=== PATIENT | female | born 1990 | race Hispanic/Latino ===

== ENCOUNTER → 2017-07-21 | Outpatient (CLI) | payer OTHER ==
[~2017-07-21] MED LIST: IOPAMIDOL 370 MG/ML 200 ML INFUS..BTL INJ ONE; PHENTERMINE H37.5 MG PO; SODIUM CHLORIDE 0.9% 50ML 50 ML ONE
--- NOTE | 2017-07-21 13:57 | Diagnostic Imaging Report ---
PROCEDURE:CT ABDOMEN W COMPARISON:[facility], CT, CT ABDOMEN/PELVIS W CONTRAST, 01/21/2011, 12:16. [facility], MRI, MRI ABDOMEN WOW, 03/31/2014, 13:34. INDICATIONS:External compression findings. TECHNIQUE: Routine protocol Volumetric CT abdomen after ministration of 100 mL Isovue-370 intravenous contrast and 100 mL enteric water. Multiplanar reformatted images. DLP: 543.62 FINDINGS: Clear lung bases. No pleural effusions. Normal heart size. Liver: Normal. The 1 cm lesion in segment 4A seen on the comparison MRI is not conspicuous. Gallbladder: Normal Pancreas: Normal Spleen: Normal Adrenal glands: Normal Kidneys: Normal Ureters: Imaged segments are normal Bowel: Normal Peritoneum: Normal Vasculature: Normal Lymph nodes: Normal Skeleton: Normal Soft tissues: Normal CONCLUSION: 1. Normal study. 2. A 1 cm benign lesion in segment 4A of the liver seen on MRI is not conspicuous. Dictated by: Sandeep Tinoco M.D. on 07/21/2017 at 13:58 Electronically approved by: Sandeep Tinoco M.D. on 07/21/2017 at 13:58
== END ==
LOC: CT 11:48
PROVIDERS: ATTEND Internal Medicine Gastroenterology
DX: K76.9 Liver disease, unspecified (principal)
CPT/HCPCS: 74160; 81025; Q9967

== ENCOUNTER 2019-03-22 01:58 | Emergency (ER) | payer OTHER ==
[~2019-03-22] VITALS: Ht 162.6 cm; Wt 72.6 kg
[~2019-03-22 01:58] MED LIST changes: -ACETAMINOPHEN 1000 MG/100 ML IV ONE; -ACETAMINOPHEN/CODEINE 300MG - 30MG TAB ONE; -BUPIVACAINE 0.25%/EPI 30ML SDV INJ ONE; -CEFAZOLIN SOD 1 GM VIAL ONE; -DESFLURANE 240 ML BTL INH ONE; -DEXAMETHASONE SOD PHOS INJ 4 MG/ML VIAL ONE; -FENTANYL CITRATE/PF 100MCG/2 ML INJ ONE; -GLYCOPYRROLATE INJ 1MG/ 5 ML SYR ONE; -KETOROLAC TROMETHAMINE 30 MG/ML VIAL ONE; -LIDOCAINE HCL 2% JELLY 5 ML TUBE ONE; -LIDOCAINE HCL 2% LOCAL INJ 5 ML SDV VIAL INJ ONE; -METOCLOPRAMIDE HCL 10 MG/2ML VIAL ONE; -MIDAZOLAM HCL 2 MG/2 ML VIAL ONE; -NEOSTIGMINE 5 MG/5ML SYR ONE; -ONDANSETRON HCL INJ 2MG/ML 2ML 2 MG/ML VIAL ONE; -PRENATAL VITAM1 EACH; -PROMETHAZINE HCL (IM) 25 MG/ML VIAL ONE; -PROPOFOL IV EMULSION 10 MG/ML 20 ML VIAL ONE; -ROCURONIUM BROMIDE 10 MG/ML 5ML VIAL ONE
--- OUTSIDE RECORDS SUMMARY | 2019-03-22 02:00 | XMS REPORT ---
Author [facility] Address Unknown Phone Unavailable Care Team Providers Care Powerhouse Tender Name Role Phone AVI LANDIN Unavailable Unavailable Payers Payer Name Policy Type Policy Number Effective Date Expiration Date Problems This patient has no known problems. Allergies, Adverse Reactions, Alerts Allergy Name Allergy Type Status Severity Reaction(s) Onset Date Inactive Date Treating Clinician Comments pseudoephedrine DA Active U 2019-01-22 00:00:00 carbinoxamine DA Active U 2019-01-22 00:00:00 pseudoephedrine DA Active U 2018-02-09 00:00:00 carbinoxamine DA Active U 2018-02-09 00:00:00 pseudoephedrine DA Active U 2014-01-10 00:00:00 carbinoxamine DA Active U 2014-01-10 00:00:00 .RONDEC DA Active U 2013-06-08 00:00:00 Medications This patient has no known medications. Results Test Description Test Time Test Comments Text Results Atomic Results Result Comments PLACENTA THIRD TRIMESTER 2019-01-24 15:46:00 RUN DATE: 01/25/19 [facility] PAGE 1 RUN TIME: 0850 Specimen Inquiry RUN USER: INTERFACE PATIENT: MAICO SHER LOC: RUFINO U #: [id number] AGE/SX: ROOM: [age] RE01/22/19REG DR: Joanne Mortensen MD : 89 BED: A DIS: 01/24/19 STATUS: DIS IN TLOC: SPEC #: [id number] RECD: 01/22/19 STATUS: JESI AWILDABeverly #: [id number] JORGE: 01/22/19- SUBM DR: Joanne Mortensen MD ENTERED: 01/23/19 SP TYPE: PLACIII OT DR: ORDERED: LEVEL V SURGICA CODES: [id number] - PLACENTA, NOS PROCEDURES: LEVEL V SURGICA (Incomplete) TISSUES: PLACENTA, NOS - PLACENTA CLINICAL HISTORY 28 year old, 38.4 weeks, [id number], section, gestational hypertension (kr) FINAL DIAGNOSIS Placenta, 38.4 weeks gestational age, section: - third trimester placenta, 559 gm (75th percentile) - low grade chronic basal villitis, focal - meconium macrophages within membranes - trivascular umbilical cord free of inflammation CPT code(s): 65337 [facility]/dennis dt: 01/24/19 GROSS DESCRIPTION The specimen was received in a container, labeled with the patient's name, unit number and designated "placenta". The following attributes are observed: Cord insertion: 7 cm from margin Cord length: 72 cm Number of vessels: 3 Cord color: Blue-bell Other cord findings: None surface findings: Steel blue, wrinkled, glistening Vasculature: Displays unremarkable blood vasculature Membranes rupture site: Marginal Membrane color: Bell Other membrane findings: Semi- translucent The trimmed placental weight: 559 gm Disk measurement: 21 x 17 x 4 cm in greatest dimension Accessory lobes: None Maternal surface: Lobulated and intact and contains a peripheral bell, firm lesion measuring 0.5 cm and involving CONTINUED ON NEXT PAGE RUN DATE: 01/25/19 [facility] PAGE 2 RUN TIME: 0850 Specimen Inquiry RUN USER: INTERFACE SPEC #: [id number] PATIENT: MAICO SHER #[id number] (Continued)---- GROSS DESCRIPTION (Continued) less than 5% of the total placental tissue (A4) Parenchyma: Red, beefy, and spongy Parenchyma lesions: None Cassettes: A1 through A4 hz/kr 01/22/19 @ 0944-------- Signed Shannon Abreu MD 01/24/19 1546 END OF REPORT HGB HCT 2019-01-23 05:54:00 HEMOGLOBIN (test code=HGB) 10.0 g/dL 10.7-13.9 HEMATOCRIT (test code=HCT) 31.7 % 32.1-42.1 CBC W/AUTO [id number] 11:57:00* Test Item Value Reference Range Comments WHITE BLOOD CELL (test code=WBC) 10.1 K/mm3 6.6-12.1 RED BLOOD CELL (test code=RBC) 4.45 M/mm3 3.45-5.01 HEMOGLOBIN (test code=HGB) 11.6 g/dL 10.7-13.9 HEMATOCRIT (test code=HCT) 35.9 % 32.1-42.1 MEAN CELL VOLUME (test code=MCV) 81 fL 84.1-94.8 MEAN CELL HGB (test code=MCH) 26.1 pg 27-35 MEAN CELL HGB CONCETRATION (test code=MCHC) 32.3 gm/dL 32.2-34.1 RED CELL DISTRIBUTION WIDTH (test code=RDW) 14.3 % 12.4-16.5 PLATELET COUNT (test code=PLT) 226 K/mm3 133-385 IMMATURE PLATELET FRACTION (test code=IPF) 0.0 % 0.0-10.8 MEAN PLATELET VOLUME (test code=MPV) 10.9 fl 9.1-12.7 NEUTROPHIL % (test code=NT%) 72.2 % 56.5-79.4 LYMPHOCYTE % (test code=LY%) 18.2 % 14.3-34.3 MONOCYTE % (test code=MO%) 6.2 % 5.1-10.4 EOSINOPHIL % (test code=EO%) 2.6 % 0.1-3.0 BASOPHIL % (test code=BA%) 0.3 % 0.1-1.0 NEUTROPHIL # (test code=NT#) 7.3 K/mm3 LYMPHOCYTE # (test code=LY#) 1.8 K/mm3 MONOCYTE # (test code=MO#) 0.6 K/mm3 EOSINOPHIL # (test code=EO#) 0.26 K/mm3 BASOPHIL # (test code=BA#) 0.0 K/mm3 RBC MORPHOLOGY REQUIRED (test code=RBCM) NORMAL NORMAL PLATELET MORPHOLOGY REQUIRED (test code=PLTMR) NORMAL NORMAL AG HEPATITIS B [id number] 14:12:00* Test Item Value Reference Range Comments AG HEPATITIS B SURFACE (test code=HBSAG) NONREACTIVE NONREACTIVE IS CONSENT FORM SIGNED FOR HIV TESTING? YAB HEPATITIS C [id number] 14:12:00* Test Item Value Reference Range Comments AB HEPATITIS C (test code=HCVAB) NONREACTIVE NONREACTIVE SIGNAL TO CUTOFF (test code=CUTOFF) 0.17 <0.80 IS CONSENT FORM SIGNED FOR HIV TESTING? YAB [id number] 14:12:00* Test Item Value Reference Range Comments AB TREPONEMA (test code=TREPAB) NONREACTIVE NONREACTIVE IS CONSENT FORM SIGNED FOR HIV TESTING? YAB HIV 1 14:12:00* Test Item Value Reference Range Comments AB HIV 1 2 (test code=RDE98NB) NONREACTIVE NONREACTIVE Done by Siemens Vivoluxaur 4th Gen HIV Ag/Ab Combo Screen IS CONSENT FORM SIGNED FOR HIV TESTING? YAG HEPATITIS B [id number] 14:11:00* Test Item Value Reference Range Comments AG HEPATITIS B SURFACE (test code=HBSAG) NONREACTIVE NONREACTIVE IS CONSENT FORM SIGNED FOR HIV TESTING? YAB HEPATITIS C [id number] 14:11:00* Test Item Value Reference Range Comments AB HEPATITIS C (test code=HCVAB) NONREACTIVE NONREACTIVE SIGNAL TO CUTOFF (test code=CUTOFF) 0.17 <0.80 IS CONSENT FORM SIGNED FOR HIV TESTING? YAB [id number] 14:11:00* Test Item Value Reference Range Comments AB TREPONEMA (test code=TREPAB) NONREACTIVE NONREACTIVE IS CONSENT FORM SIGNED FOR HIV TESTING? YAB HIV 1 14:11:00* Test Item Value Reference Range Comments AB HIV 1 2 (test code=UWO97RK) NONREACTIVE IS CONSENT FORM SIGNED FOR HIV TESTING? YAG HEPATITIS B [id number] 13:43:00* Test Item Value Reference Range Comments AG HEPATITIS B SURFACE (test code=HBSAG) NONREACTIVE IS CONSENT FORM SIGNED FOR HIV TESTING? YAB HEPATITIS C [id number] 13:43:00* Test Item Value Reference Range Comments AB HEPATITIS C (test code=HCVAB) NONREACTIVE SIGNAL TO CUTOFF (test code=CUTOFF) <0.80 IS CONSENT FORM SIGNED FOR HIV TESTING? YAB [id number] 13:43:00* Test Item Value Reference Range Comments AB TREPONEMA (test code=TREPAB) NONREACTIVE NONREACTIVE IS CONSENT FORM SIGNED FOR HIV TESTING? YAB HIV 1 13:43:00* Test Item Value Reference Range Comments AB HIV 1 2 (test code=EGQ95BX) NONREACTIVE IS CONSENT FORM SIGNED FOR HIV TESTING? YAG HEPATITIS B [id number] 13:43:00* Test Item Value Reference Range Comments AG HEPATITIS B SURFACE (test code=HBSAG) NONREACTIVE NONREACTIVE IS CONSENT FORM SIGNED FOR HIV TESTING? ANAB HEPATITIS C [id number] 13:43:00* Test Item Value Reference Range Comments AB HEPATITIS C (test code=HCVAB) NONREACTIVE SIGNAL TO CUTOFF (test code=CUTOFF) <0.80 IS CONSENT FORM SIGNED FOR HIV TESTING? YAB [id number] 13:43:00* Test Item Value Reference Range Comments AB TREPONEMA (test code=TREPAB) NONREACTIVE NONREACTIVE IS CONSENT FORM SIGNED FOR HIV TESTING? YAB HIV 1 13:43:00* Test Item Value Reference Range Comments AB HIV 1 2 (test code=GSZ71RO) NONREACTIVE IS CONSENT FORM SIGNED FOR HIV TESTING? YCBC W/AUTO [id number] 13:10:00* Test Item Value Reference Range Comments WHITE BLOOD CELL (test code=WBC) 9.5 K/mm3 6.6-12.1 RED BLOOD CELL (test code=RBC) 4.38 M/mm3 3.45-5.01 HEMOGLOBIN (test code=HGB) 11.2 g/dL 10.7-13.9 HEMATOCRIT (test code=HCT) 35.4 % 32.1-42.1 MEAN CELL VOLUME (test code=MCV) 81 fL 84.1-94.8 MEAN CELL HGB (test code=MCH) 25.6 pg 27-35 MEAN CELL HGB CONCETRATION (test code=MCHC) 31.6 gm/dL 32.2-34.1 RED CELL DISTRIBUTION WIDTH (test code=RDW) 14.5 % 12.4-16.5 PLATELET COUNT (test code=PLT) 222 K/mm3 133-385 IMMATURE PLATELET FRACTION (test code=IPF) 0.0 % 0.0-10.8 MEAN PLATELET VOLUME (test code=MPV) 10.9 fl 9.1-12.7 NEUTROPHIL % (test code=NT%) 76.0 % 56.5-79.4 LYMPHOCYTE % (test code=LY%) 15.3 % 14.3-34.3 MONOCYTE % (test code=MO%) 4.8 % 5.1-10.4 EOSINOPHIL % (test code=EO%) 3.3 % 0.1-3.0 BASOPHIL % (test code=BA%) 0.3 % 0.1-1.0 NEUTROPHIL # (test code=NT#) 7.2 K/mm3 LYMPHOCYTE # (test code=LY#) 1.5 K/mm3 MONOCYTE # (test code=MO#) 0.5 K/mm3 EOSINOPHIL # (test code=EO#) 0.31 K/mm3 BASOPHIL # (test code=BA#) 0.0 K/mm3 RBC MORPHOLOGY REQUIRED (test code=RBCM) NORMAL NORMAL PLATELET MORPHOLOGY REQUIRED (test code=PLTMR) NORMAL NORMAL URINALYSIS W/O [id number] 12:18:00* Test Item Value Reference Range Comments UA GLUCOSE DIPSTICK (test code=DGLUU) NEGATIVE NEGATIVE UA KETONE DIPSTICK (test code=KETU) NEGATIVE NEGATIVE UA PROTEIN DIPSTICK (test code=PROU) 1+ NEGATIVE IS NURSE PERFORMING TEST? NPRODUCTS OF [id number] 15:46:00 RUN DATE: 02/13/18 [facility] PAGE 1 RUN TIME: 1926 Specimen Inqui ry RUN USER: INTERFACE PATIENT: MAICO SHER ACCT #: [id number] LOC: SAMANTHA U #: [id number] AGE/SX: ROOM: RE02/09/18REG DR: Joanne Mortensen MD : 89 BED: DIS: STATUS: DEP HEVER TLOC: SPEC #: [id number] RECD: 02/09/18 STATUS: JESI COPELAND #: [id number] JORGE: 02/09/18- SUBM DR: Joanne Mortensen MD ENTERED: 02/12/18 SP TYPE: POC[ OTHR DR: ORDERED: LEVEL IV CODES: [id number] - ENDOMETRIUM, NO PROCEDURES: LEVEL IV (Incomplete) TISSUES: ENDOMETRIUM, NOS - POC CLINICAL HISTORY 27 year old, missed (kr) FINAL DIAGNOSIS Destim nated "products of conception" - products of conception identified Tis tomasz code 1 CPT code(s): 73238 pkg/wpd 02/13/18 @ 1510 GROSS DESCRIP TION The specimen is received in formalin, labeled with the patient's name an d designated "products of conception". The specimen consists of multiple piec es of bell and red tissue on a Telfa Pad and in a suction collection container aggregating to 4 x 3 x 2 cm. [employer] pieces of the specimen are submit kanika labeled A and B. jameson/dennis 02/12/18 @ 1123 MICROSCOPIC DESCRIPTION The specimen consists of clusters of immature chorionic villi containing mild tro phoblast proliferation that is mainly polar. No central cisterns, intravillous inclusions or villous scalloping are identified. Fragments of decidua and g estational endometrium are also present. pkg/wpd 02/13/18 @ 1510 S igned Cathy Buchanan 02/13/[address] ABDOMEN W [place] [address] Patient Name: MAICO SHER MR #: [id number] : 1990 Age/Sex: 26/F Req #: [id number] [facility] Physician: Ordered by: AVI LANDIN MD Report #: [id number] Location: CT Room/Bed: Procedure: [id number] CT/CT ABDOMEN W Exam Date: Exam Time: 1259 REPORT STATUS: Signed PROCEDURE: CT ABDOMEN W COMPARISON: [facility], CT, CT ABDOM EN/PELVIS W CONTRAST, 01/21/2011, 12:16. [facility], MRI, MRI A BDOMEN WOW, 03/31/2014, 13:34. INDICATIONS: External compression findings . TECHNIQUE: Routine protocol Volumetric CT abdomen after ministration of 100 mL Isovue-370 intravenous contrast and 100 mL enteric water. Multiplan ar reformatted images. DLP: 543.62 FINDINGS: Clear lung bases. No pleura l effusions. Normal heart size. Liver: Normal. The 1 cm lesion in segment 4A seen on the comparison MRI is not conspicuous. Gallbladder: Normal Lopez creas: Normal Spleen: Normal Adrenal glands: Normal Kidneys: Normal Ureters: Imaged segments are normal Bowel: Normal Peritoneum: Normal Vasculature: Normal Lymph nodes: Normal Skeleton: Normal Soft tissu es: Normal CONCLUSION: 1. Normal study. 2. A 1 cm benign lesion in seg ment 4A of the liver seen on MRI is not conspicuous. Dictated by: Verna Tinoco M.D. on 07/21/2017 at 13:58 Electronically approved b y: Verna Tinoco M.D. on 07/21/2017 at 13:58 Dictated By : VERNA TINOCO MD 135 [id number] Transcribed By: SANGITA on 07/21/17 1358 COPY TO: AVI LANDIN MD
[2019-03-22] MEDS ORDERED: ONDANSETRON HCL INJ 2MG/ML 2ML 2 MG/ML VIAL IV STA (02:03)
[2019-03-22] MEDS ORDERED: HYDROMORPHONE 1MG/1ML INJ IV STA (02:03)
[2019-03-22] MEDS ORDERED: PANTOPRAZOLE 40 MG 10ML VIAL IV STA (02:05)
[2019-03-22] MEDS ORDERED: SODIUM CHLORIDE 0.9% 1000ML 1,000 ML ONE (02:11)
[2019-03-22] MEDS ORDERED: DICYCLOMINE HCL 20 MG/2 ML VIAL IM ONE (02:15)
[2019-03-22] MEDS ORDERED: SODIUM CHLORIDE 0.9% 1000ML 1,000 ML IV ONE (02:15)
[2019-03-22 02:18] LABS: BASOPHILS # (AUTO) 0.1 (0.0-0.1); BASOPHILS % 0.4 % (0.0-1.0); EOSINOPHILS # (AUTO) 0.6 (0.0-0.4); EOSINOPHILS % 4.8 % (0.0-6.0); HEMATOCRIT 38.9 % (34.2-44.1); HEMOGLOBIN 12.4 g/dL (12.0-16.0); LYMPHOCYTES # (AUTO) 3.8 (1.0-3.2); LYMPHOCYTES % 33.5 % (18.0-39.1); MEAN CORPUSCULAR HEMOGLOBIN 25.1 pg (28-32); MEAN CORPUSCULAR HGB CONC 31.9 g/dL (31-35); MEAN CORPUSCULAR VOLUME 78.7 fL (81-99); MONOCYTES # (AUTO) 0.6 (0.2-0.8); MONOCYTES % 5.5 % (4.4-11.3); NEUTROPHILS # (AUTO) 6.3 (2.1-6.9); NEUTROPHILS % 55.6 % (38.7-80.0); PLATELET COUNT 312 x10e3/uL (140-360); RED BLOOD COUNT 4.94 x10e6/uL (3.6-5.1)
[2019-03-22 02:30] LABS: AMYLASE 55 U/L (25-125); LIPASE 56 U/L (8-78)
[2019-03-22 02:41] LABS: ALANINE AMINOTRANSFERASE 37 IU/L (0-55); ALBUMIN 3.9 g/dL (3.5-5.0); ALBUMIN/GLOBULIN RATIO 0.8 (0.8-2.0); ALKALINE PHOSPHATASE 122 IU/L (40-150); ANION GAP 19.6 mmol/L (8-16); BLOOD UREA NITROGEN 15 mg/dL (7-26); BUN/CREATININE RATIO 20 (6-25); CALCIUM 10.1 mg/dL (8.4-10.2); CARBON DIOXIDE 22 mmol/L (22-29); CHLORIDE 102 mmol/L (98-107); CREATININE, SERUM 0.74 mg/dL (0.57-1.11); EST GLOMERULAR FILTRATION RATE > 60 ML/MIN (60-); GLUCOSE 104 mg/dL (74-118); POTASSIUM 5.6 mmol/L (3.5-5.1); SODIUM 138 mmol/L (136-145)
[2019-03-22 03:00] LABS: CLARITY,URINE SL CLOUDY (CLEAR); COLOR,URINE YELLOW (YELLOW); LEUKOCYTE ESTERASE ,URINE TRACE (NEGATIVE); PREGNANCY TEST, URINE NEGATIVE (NEGATIVE)
[2019-03-22 03:01] LABS: BILIRUBIN,URINE NEGATIVE (NEGATIVE); KETONES,URINE NEGATIVE (NEGATIVE); NITRITE,URINE NEGATIVE (NEGATIVE); PROTEIN,URINE DIPSTICK NEGATIVE (NEGATIVE); URINE UROBILINOGEN 0.2 mg/dL (0.2 - 1)
[2019-03-22 03:25] LABS: BACTERIA,URINE FEW /HPF; EPITHELIAL CELLS,URINE FEW /LPF; RBC,URINE 0-5 /HPF (0-5); RENAL EPITHELIAL CELLS,URINE FEW; TRANSITIONAL EPI CELLS,URINE MODERATE
[2019-03-22 03:34] LABS: ALANINE AMINOTRANSFERASE 37 IU/L (0-55); ALBUMIN 3.3 g/dL (3.5-5.0); ALKALINE PHOSPHATASE 119 IU/L (40-150); ANION GAP 13.3 mmol/L (8-16); BLOOD UREA NITROGEN 14 mg/dL (7-26); BUN/CREATININE RATIO 21 (6-25); CALCIUM 8.6 mg/dL (8.4-10.2); CARBON DIOXIDE 21 mmol/L (22-29); CHLORIDE 107 mmol/L (98-107); CREATININE, SERUM 0.66 mg/dL (0.57-1.11); EST GLOMERULAR FILTRATION RATE > 60 ML/MIN (60-); GLUCOSE 106 mg/dL (74-118); SODIUM 138 mmol/L (136-145)
[2019-03-22 03:54] LABS: POTASSIUM 3.3 mmol/L (3.5-5.1)
[2019-03-22] MEDS ORDERED: KCL 20MEQ/.9 SOD CHL 1,000 ML IV ONE ×2 (04:15→04:16)
[2019-03-22 05:33] VITALS: BP 113/92
--- NOTE | 2019-03-22 05:46 | NUR ---
pt to be discharged from er p current bag of ivf. pt to report to day surgery at this facility for gallbladder removal. md states to leave iv in for day surgery. spoke to libia in surgery department, informed that pt in er and to be discharged and will report for day surgery c iv in place per md orders. pt is preregistered for sx, informed that still needs to check in for surgery at front lobby per preop nurse. pt verbalized understanding of instructions.
[2019-03-22] MEDS ORDERED: PRENATAL VITAM1 EACH (07:31)
== END 2019-03-22 05:45 | disposition home or self-care (01) ==
LOC: ER 01:58
DX: R10.13 Epigastric pain (principal); R10.11 Right upper quadrant pain; R11.0 Nausea; K80.20 Calculus of gallbladder without cholecystitis without obstruction; E87.6 Hypokalemia; K52.9 Noninfective gastroenteritis and colitis, unspecified
CPT/HCPCS: 36415; 80053; 81001; 81025; 82150; 83690; 85025; 99283; C9113; J0500; J1170; J2405; J7030

== ENCOUNTER → 2019-03-22 | Day surgery (SDC) | payer OTHER ==
[2019-03-21 10:57] LABS: ALANINE AMINOTRANSFERASE 30 IU/L (0-55); ALBUMIN 4.1 g/dL (3.5-5.0); ALKALINE PHOSPHATASE 104 IU/L (40-150); BLOOD UREA NITROGEN 16 mg/dL (7-26); BUN/CREATININE RATIO 23 (6-25); CALCIUM 9.5 mg/dL (8.4-10.2); CARBON DIOXIDE 24 mmol/L (22-29); CHLORIDE 105 mmol/L (98-107); EST GLOMERULAR FILTRATION RATE > 60 ML/MIN (60-); GLUCOSE 80 mg/dL (74-118); SODIUM 140 mmol/L (136-145)
[2019-03-21 11:11] LABS: BASOPHILS # (AUTO) 0.1 (0.0-0.1); BASOPHILS % 0.5 % (0.0-1.0); EOSINOPHILS # (AUTO) 0.5 (0.0-0.4); EOSINOPHILS % 4.9 % (0.0-6.0); HEMOGLOBIN 12.6 g/dL (12.0-16.0); LYMPHOCYTES # (AUTO) 2.4 (1.0-3.2); LYMPHOCYTES % 26.1 % (18.0-39.1); MEAN CORPUSCULAR HGB CONC 31.5 g/dL (31-35); MEAN CORPUSCULAR VOLUME 79.2 fL (81-99); MONOCYTES # (AUTO) 0.5 (0.2-0.8); MONOCYTES % 5.4 % (4.4-11.3); NEUTROPHILS # (AUTO) 5.7 (2.1-6.9); NEUTROPHILS % 62.7 % (38.7-80.0); PLATELET COUNT 318 x10e3/uL (140-360); RED BLOOD COUNT 5.05 x10e6/uL (3.6-5.1); RED CELL DISTRIBUTION WIDTH 13.8 % (11.7-14.4)
[2019-03-21 11:12] LABS: BILIRUBIN,URINE NEGATIVE (NEGATIVE); CLARITY,URINE CLEAR (CLEAR); COLOR,URINE YELLOW (YELLOW); KETONES,URINE NEGATIVE (NEGATIVE); LEUKOCYTE ESTERASE ,URINE SMALL (NEGATIVE); NITRITE,URINE NEGATIVE (NEGATIVE); PROTEIN,URINE DIPSTICK NEGATIVE (NEGATIVE); URINE UROBILINOGEN 0.2 mg/dL (0.2 - 1)
[2019-03-21 11:30] LABS: BACTERIA,URINE MODERATE /HPF; EPITHELIAL CELLS,URINE MODERATE /LPF; MUCUS,URINE FEW (RARE)
[~2019-03-22] MED LIST changes: +ACETAMINOPHEN 1000 MG/100 ML IV ONE; +ACETAMINOPHEN/CODEINE 300MG - 30MG TAB ONE; +BUPIVACAINE 0.25%/EPI 30ML SDV INJ ONE; +CEFAZOLIN SOD 1 GM VIAL ONE; +DESFLURANE 240 ML BTL INH ONE; +DEXAMETHASONE SOD PHOS INJ 4 MG/ML VIAL ONE; +FENTANYL CITRATE/PF 100MCG/2 ML INJ ONE; +GLYCOPYRROLATE INJ 1MG/ 5 ML SYR ONE; -IOPAMIDOL 370 MG/ML 200 ML INFUS..BTL INJ ONE; +KETOROLAC TROMETHAMINE 30 MG/ML VIAL ONE; +LIDOCAINE HCL 2% JELLY 5 ML TUBE ONE; +LIDOCAINE HCL 2% LOCAL INJ 5 ML SDV VIAL INJ ONE; +METOCLOPRAMIDE HCL 10 MG/2ML VIAL ONE; +MIDAZOLAM HCL 2 MG/2 ML VIAL ONE; +NEOSTIGMINE 5 MG/5ML SYR ONE; +ONDANSETRON HCL INJ 2MG/ML 2ML 2 MG/ML VIAL ONE; +PRENATAL VITAM1 EACH; +PROMETHAZINE HCL (IM) 25 MG/ML VIAL ONE; +PROPOFOL IV EMULSION 10 MG/ML 20 ML VIAL ONE; +ROCURONIUM BROMIDE 10 MG/ML 5ML VIAL ONE; -SODIUM CHLORIDE 0.9% 50ML 50 ML ONE
--- NOTE | 2019-03-22 11:56 | Operative Report ---
DATE OF PROCEDURE: 03/22/2019 SURGEON: Pito Figueredo MD PREOPERATIVE DIAGNOSES: 1. Cholelithiasis. 2. Biliary colic. POSTOPERATIVE DIAGNOSES: 1. Cholelithiasis. 2. Biliary colic. 3. Subacute cholecystitis. PROCEDURE PERFORMED: Laparoscopic cholecystectomy. ANESTHESIA: General. ESTIMATED BLOOD LOSS: Minimal. DRAINS: None. COMPLICATIONS: None. INDICATION AND FINDINGS: The patient is a 28-year-old female, who was travelling in [place] during giving time when she has had an episode of acute right upper quadrant pain. She was evaluated there, had an ultrasound that revealed gallstones and no ductal dilatation. Liver chemistries were normal. The pain resolved after that episode and did not recur. INTRAOPERATIVE FINDINGS: Cholelithiasis, small stones. There was no ductal dilatation. There was some evidence of subacute cholecystitis with evidence of some mild edema in the wall of the gallbladder. The patient had pelvic adhesion from two previous C-sections. DESCRIPTION OF PROCEDURE: With the patient lying on the operative table in the supine position after administration of general anesthesia, she was prepped and draped for laparoscopic cholecystectomy. The procedure was begun by establishing the pneumoperitoneum in the right upper quadrant midclavicular line because of previous pelvic surgery and pneumoperitoneum insufflated to 10 mm of pressure and then the 5 mm trocar placed in that location. Then, under direct vision with the camera, we placed the 10/11 trocar in the umbilical port and then finally two ports, one 10 mm in the subxiphoid region and the last one in the right midclavicular line using 5 mm trocar. Then, we introduced the camera in the umbilical site and exploration of the abdomen and then we performed diagnostic laparoscopy. There were pelvic adhesions from the omentum to the anterior abdominal wall and the uterus was somewhat stuck to the urinary bladder. Otherwise, it appeared to be normal. She had a small parametrial cyst and both ovaries appeared to be normal and we looked and found an appendix that was normal. We also saw a tattoo in the area of the hepatic flexure from the previous colonoscopy and tattoo. This patient gets regular colonoscopies because of a strong family history of cancer of the colon as well as a personal history of cancer polyps. The gallbladder had some mild edema and there was no ductal dilatation. We began the dissection by retracting the gallbladder cephalad through the fundus and then the neck was retracted laterally and inferiorly exposing the hepatoduodenal ligament. We dissected the cystic duct as well as cystic artery that was superficially located. The cystic duct was rather small. We identified the common bile duct junction also. At this point, we went ahead and then transected the cystic duct between titanium clips as well as the cystic artery. Then, we continued the dissection, we identified the right hepatic artery that was coming into the gallbladder bed fossa and giving off a branch to the gallbladder and that branch was transected between titanium clips also. Then, the gallbladder was taken down from the liver bed using electrocautery dissection, detached, placed in an endobag and removed through the umbilical port. We then inspected the operative field. There was some minor oozing that was cauterized. We suctioned everything out until the effluent was clear. At that point, then we released the pneumoperitoneum and closed the wound using 0-Vicryl for the umbilical fascia, 3-0 Vicryl for the subcutaneous tissue in that location as well as the subxiphoid port and then the skin of all the ports was closed using karina. Marcaine 0.25% with epinephrine was given as local block at the end of the case. The patient tolerated the procedure well, taken to the recovery room in stable condition. MD FILIBERTO Dominguez/NATHEN /[id number]
[2019-03-22 12:30] VITALS: BP 130/84
== END | disposition home or self-care (01) ==
LOC: OR 06:28
PROVIDERS: ATTEND Surgery
DX: K80.10 Calculus of gallbladder with chronic cholecystitis without obstruction (principal); K21.9 Gastro-esophageal reflux disease without esophagitis; M06.9 Rheumatoid arthritis, unspecified; Z88.8 Allergy status to other drugs, medicaments and biological substances; Z01.812 Encounter for preprocedural laboratory examination; Z68.35 Body mass index [BMI] 35.0-35.9, adult; Z86.010 Personal history of colon polyps; Z80.0 Family history of malignant neoplasm of digestive organs
CPT/HCPCS: 36415; 47562; 80053; 81001; 81025; 85025; 88304; C1766; J0131; J0690; J1100; J1885; J2001 ×2; J2250; J2405; J2550; J2704; J2765; J3010; J3490

== ENCOUNTER → 2021-12-17 | Day surgery (SDC) | payer BC, OTHER ==
[~2021-12-17] MED LIST changes: +BARIATRIC MV-I1 EACH PO; +CA ZINC PO; +FENTANYL CITRATE/PF 100MCG/2 ML INJ ONE; +HYOSCYAMINE SULFATE 0.5 MG/ML INJ ONE; +LIDOCAINE HCL 2% LOCAL INJ 5 ML SDV VIAL INJ ONE; +METOCLOPRAMIDE HCL 10 MG/2ML VIAL ONE; +MIDAZOLAM HCL 2 MG/2 ML VIAL ONE; +PHENYLEPHRINE HCL 1% 10 MG/ML VIAL ONE; +PLAQUENIL200 MG PO; +PRENATAL VITAM1 EACH; +PROPOFOL IV EMULSION 10 MG/ML 20 ML VIAL ONE
[2021-12-17 09:30] VITALS: BP 111/80
[2021-12-17 10:25] LABS: WBC,FECAL (FECAL LACTOFERRIN) NEGATIVE (NEGATIVE)
== END | disposition home or self-care (01) ==
LOC: OR 06:09
PROVIDERS: ATTEND Internal Medicine Gastroenterology
DX: K29.50 Unspecified chronic gastritis without bleeding (principal); K63.5 Polyp of colon; K52.9 Noninfective gastroenteritis and colitis, unspecified; K62.89 Other specified diseases of anus and rectum; K20.90 Esophagitis, unspecified without bleeding; K44.9 Diaphragmatic hernia without obstruction or gangrene; K64.8 Other hemorrhoids; Z71.3 Dietary counseling and surveillance; Z98.84 Bariatric surgery status; M06.9 Rheumatoid arthritis, unspecified; Z88.8 Allergy status to other drugs, medicaments and biological substances; Z68.25 Body mass index [BMI] 25.0-25.9, adult; Z86.16 Personal history of COVID-19; Z80.0 Family history of malignant neoplasm of digestive organs
CPT/HCPCS: 43239; 45380; 45385; 81025; 83630; 83993; 87045; 87177; 87324; 87328; 87449; C9113; J1980; J2001; J2250; J2370; J2704; J2765; J3010

== ENCOUNTER → 2024-05-31 | Day surgery (SDC) | payer BC ==
[~2024-05-31] MED LIST changes: +CEFUROXIME250 MG PO; +DOXYCYCLINE HY100 M3 PO; +EPHEDRINE SULFATE INJ 50 MG/ML VIAL ONE; +ONDANSETRON HCL INJ 2MG/ML 2ML 2 MG/ML VIAL ONE; -PHENYLEPHRINE HCL 1% 10 MG/ML VIAL ONE; +PROPOFOL IV EMULSION 50 ML IV ONE; +WOMEN'S DAILY1 EACH PO
[2024-05-31] MEDS: LACTATED RINGER'S 1,000 ML ONE (12:59)
[2024-05-31 13:49] VITALS: TEMP 97
[2024-05-31 14:20] VITALS: BP 121/73; PULSE 93; RESP 16; O2SAT 100
== END | disposition home or self-care (01) ==
LOC: OR 10:19
PROVIDERS: ATTEND Internal Medicine Gastroenterology
DX: Z12.11 Encounter for screening for malignant neoplasm of colon (principal); Z86.0100 Personal history of colon polyps, unspecified; K29.70 Gastritis, unspecified, without bleeding; K31.89 Other diseases of stomach and duodenum; K20.90 Esophagitis, unspecified without bleeding; K44.9 Diaphragmatic hernia without obstruction or gangrene; K64.8 Other hemorrhoids; Z98.84 Bariatric surgery status; Z71.3 Dietary counseling and surveillance; R74.8 Abnormal levels of other serum enzymes; M06.9 Rheumatoid arthritis, unspecified; Z88.8 Allergy status to other drugs, medicaments and biological substances; Z68.25 Body mass index [BMI] 25.0-25.9, adult; Z86.16 Personal history of COVID-19; Z80.0 Family history of malignant neoplasm of digestive organs
CPT/HCPCS: 43239; 45378; 81025; J1980; J2003; J2250; J2405; J2470; J2704 ×2; J2765; J3010; J7121